=== PATIENT | female | born 1980 | race Caucasian/White ===

== ENCOUNTER → 2018-07-22 12:48 | Outpatient (CLI) | payer BC ==
[2018-07-22 15:28] LABS: CREATININE - SERUM 0.9 mg/dL (0.6-1.3); VANCOMYCIN - TROUGH 5.6 ug/mL (10.0-20.0)
== END | disposition home or self-care (01) ==
LOC: D.LABREF 12:48
PROVIDERS: Student in an Organized Health Care Education/Training Program
DX: L03.319 Cellulitis of trunk, unspecified (principal)

== ENCOUNTER → 2018-07-26 13:43 | Outpatient (CLI) | payer BC ==
[2018-07-26 14:37] LABS: CREATININE - SERUM 0.9 mg/dL (0.6-1.3); VANCOMYCIN - TROUGH 9.6 ug/mL (10.0-20.0)
== END | disposition home or self-care (01) ==
LOC: D.LABREF 13:43
PROVIDERS: Student in an Organized Health Care Education/Training Program
DX: L03.319 Cellulitis of trunk, unspecified (principal)